=== PATIENT | female | born 1995 | race Caucasian/White ===

== ENCOUNTER 2020-03-28 06:09 | Inpatient (IN) ==
[2020-03-28] MEDS ORDERED: LACTATED RINGERS 250 ML IV ONE (07:26)
[2020-03-28] MEDS ORDERED: ONDANSETRON 4 MG/2 ML VIAL IV PRN (07:26)
[2020-03-28] MEDS ORDERED: BUTORPHANOL 2 MG/ML VIAL IV PRN (07:26)
[2020-03-28] MEDS ORDERED: ACETAMINOPHEN 325 MG TABLET PO PRN ×2 (07:26→15:09)
[2020-03-28] MEDS ORDERED: MEPERIDINE 50 MG/1 ML VIAL IM PRN (07:26)
[2020-03-28] MEDS ORDERED: LACTATED RINGERS 500 ML IV PRN (07:26)
[2020-03-28] MEDS ORDERED: OXYTOCIN/LR 20 UNIT/1,000 ML BAG IV SCH (07:30)
[2020-03-28] MEDS ORDERED: LACTATED RINGERS 1,000 ML IV SCH (07:30)
[2020-03-28 07:49] LABS: Basophils % 0.2 % (0.0-0.8); Eosinophils # 0.1 10*3/uL (0.0-0.87); Eosinophils % 0.5 % (0.00-10.9); Hematocrit 39.7 VOL% (35.7-47.0); Hemoglobin 12.9 GM/DL (12.0-16.0); Immature Granulocytes % 0.5 %; Immature Granulocytes Absolute 0.05 #; Lymphocytes # 2.1 10*3/uL (1.4-4.0); Lymphocytes % 21.4 % (21.3-54.2); Mean Corpuscular HGB Conc 32.5 GM/DL (32-36); Mean Corpuscular Volume 95.9 FL (87-102); Mean Platelet Volume 10.6 FL (9.6-12.0); Monocytes % 6.3 % (1.7-12.7); Neutrophils % 71.1 % (38.7-73.9); Platelet Count 187 T/CUMM (130-400); Red Blood Count 4.14 MC/CUMM (3.8-5.5); Red Cell Distribution Width 13.5 % (9.3-17.3); White Blood Count 9.6 T/CUMM (4-12)
[2020-03-28] MEDS ORDERED: METHYLERGONOVINE 0.2 MG/1 ML AMP ONE (11:34)
[2020-03-28] MEDS ORDERED: miSOPROStoL 200 MCG TABLET ONE (11:34)
[2020-03-28] MEDS ORDERED: OXYTOCIN 10 UNIT/ML VIAL ONE (11:34)
[2020-03-28] MEDS ORDERED: CARBOPROST TROMETHAMINE 250 MCG/ML AMP IM ONE (11:35)
[2020-03-28] MEDS ORDERED: SODIUM CHLORIDE 0.9% 0 ML IV ONE (11:35)
[2020-03-28] MEDS ORDERED: TRANEXAMIC ACID 1,000 MG/10 ML VIAL ONE (11:35)
[2020-03-28] MEDS ORDERED: LIDOCAINE 1% 50 ML VIAL ONE (11:41)
[2020-03-28 12:03] LABS: Cord Venous Blood HCO3 19.8 MMOL/L; Cord Venous Blood PCO2 35.6 MMHG; Cord Venous Blood PO2 29.6 MMHG
[2020-03-28] MEDS: IBUPROFEN 800 MG TABLET PO PRN ×2 (15:05→21:00)
[2020-03-28] MEDS ORDERED: BENZOCAINE 20%/MENTHOL 0.5% SPRAY 56 GM CAN TOP PRN (15:09)
[2020-03-28] MEDS ORDERED: oxyCODONE/ACETAMINOPHEN 5-325 MG TABLET PO PRN ×2 (15:09)
[2020-03-28] MEDS ORDERED: DIPH/TET/ACEL PERT BOOSTER VACCINE 0.5 ML VIAL IM ONE (15:09)
[2020-03-28] MEDS ORDERED: MEASLES/MUMPS/RUBELLA VACCINE 0.5 ML VIAL SUBCUT ONE (15:09)
[2020-03-28] MEDS ORDERED: RHO(D) IMMUNE GLOBULIN 300 MCG SYRINGE IM ONE (15:09)
[2020-03-28] MEDS ORDERED: OXYTOCIN/LR 20 UNIT/1,000 ML BAG IV ONE (15:09)
[2020-03-28] MEDS ORDERED: BISACODYL 10 MG SUPP RECTAL PRN (15:09)
[2020-03-28] MEDS ORDERED: HYDROCORTISONE 2.5% RECTAL CREAM 30 GM TUBE TOP PRN (15:09)
[2020-03-28] MEDS ORDERED: LANOLIN 50% CREAM 0.3 OZ TUBE TOP PRN (15:09)
[2020-03-28] MEDS ORDERED: WITCH HAZEL PADS 100/JAR TOP PRN (15:09)
[2020-03-28] MEDS: DOCUSATE SODIUM 100 MG CAPSULE PO SCH (21:00)
[2020-03-29] MEDS: IBUPROFEN 800 MG TABLET PO PRN ×3 (04:49→21:38)
[2020-03-29 05:18] LABS: Basophils % 0.3 % (0.0-0.8); Eosinophils # 0.1 10*3/uL (0.0-0.87); Eosinophils % 0.5 % (0.00-10.9); Hematocrit 31.8 VOL% (35.7-47.0); Immature Granulocytes % 0.4 %; Immature Granulocytes Absolute 0.04 #; Lymphocytes # 2.4 10*3/uL (1.4-4.0); Mean Corpuscular HGB Conc 33.6 GM/DL (32-36); Mean Corpuscular Volume 92.4 FL (87-102); Mean Platelet Volume 10.9 FL (9.6-12.0); Monocytes % 6.9 % (1.7-12.7); Neutrophils % 67.9 % (38.7-73.9); Platelet Count 164 T/CUMM (130-400); Red Blood Count 3.44 MC/CUMM (3.8-5.5); Red Cell Distribution Width 13.2 % (9.3-17.3); White Blood Count 10.2 T/CUMM (4-12)
[2020-03-29 05:23] LABS: Hemoglobin 10.7 GM/DL (12.0-16.0)
[2020-03-29] MEDS: LEVOTHYROXINE 50 MCG TABLET PO SCH (06:21)
[2020-03-29] MEDS: DOCUSATE SODIUM 100 MG CAPSULE PO SCH ×2 (09:09→21:38)
[2020-03-29] MEDS: MULTIVITAMIN (PRENATAL) TABLET PO SCH (09:09)
[2020-03-30] MEDS: LEVOTHYROXINE 50 MCG TABLET PO SCH (06:28)
[2020-03-30 08:03] VITALS: BP 102/53
[2020-03-30] MEDS: MULTIVITAMIN (PRENATAL) TABLET PO SCH (08:46)
[2020-03-30] MEDS: DOCUSATE SODIUM 100 MG CAPSULE PO SCH (08:46)
== END 2020-03-30 12:20 | disposition home or self-care (01) | DRG 560 ==
LOC: N.LDOUT 06:09 → N.LD 06:13 → N.OB 15:01
PROVIDERS: ADMIT Obstetrics & Gynecology; ATTEND Obstetrics & Gynecology